=== PATIENT | male | born 2000 | race Caucasian/White ===

== ENCOUNTER 2024-01-18 11:27 | Emergency (ER) | payer SELFPAY ==
[~2024-01-18] VITALS: Ht 172.7 cm; Wt 89.3 kg
[2024-01-18 11:46] VITALS: BP 137/77
[2024-01-18 12:01] VITALS: BP 126/82
[2024-01-18] MEDS ORDERED: CEPHALEXIN500 M1 PO (12:04)
[2024-01-18] MEDS ORDERED: ALL DAY10 MG PO (12:04)
[2024-01-18] MEDS ORDERED: PREDNISONE50 MG PO (12:04)
[2024-01-18 12:15] VITALS: BP 123/83
[2024-01-18 12:19] VITALS: BP 123/83
== END 2024-01-18 12:30 | disposition home or self-care (01) | DRG 918 ==
LOC: ED 11:27
DX: T63.461A Toxic effect of venom of wasps, accidental (unintentional), initial encounter (principal); F17.290 Nicotine dependence, other tobacco product, uncomplicated